=== PATIENT | male | born 1965 | race Caucasian/White ===

== ENCOUNTER 2020-12-07 21:16 | Inpatient (IN) | payer OTHER ==
[2020-12-07 21:55] LABS: #Basophils 0.1 thou/uL (0.0-0.2); #Eosinphils 0.3 thou/uL (0.0-0.7); #Lymphocytes 2.9 thou/uL (1.20-3.40); #Monocytes 1.3 thou/uL (0.11-0.59); #Neutrophils 6.3 thou/uL (1.40-6.50); %Basophils 0.7 % (0.0-1.0); %Eosinophils 2.9 % (0.0-10.0); %Lymphocytes 26.7 % (21.0-51.0); %Monocytes 12.3 % (0.0-10.0); %Neutrophils 57.4 % (42.0-75.0); Hemoglobin 11.2 g/dL (14.0-18.0); Mean Corpuscular Hemoglobin 31.7 pg (27.0-31.0); Platelet Count 541 thou/uL (130-400); RBC Distribution Width 15.3 % (11.5-14.5); Red Blood Cell (RBC) Count 3.52 mill/uL (4.70-6.10); White Blood Cell (WBC) Count 10.9 thou/uL (4.8-10.8)
[2020-12-07 22:30] LABS: ALT (SGPT) 29 U/L (8-55); AST (SGOT) 30 U/L (5-34); Albumin 3.3 g/dL (3.5-5.0); Alkaline Phosphatase 76 U/L (40-110); Anion Gap 14 mmol/L (10-20); BUN (Urea Nitrogen) 12 mg/dL (8.4-25.7); Bilirubin, Total 0.3 mg/dL (0.2-1.2); CK (CPK) 204 U/L (30-200); Calc. Creatinine Clearance 0 mL/min (70-130); Calcium 8.9 mg/dL (7.8-10.44); Carbon Dioxide 22 mmol/L (22-29); Chloride 105 mmol/L (98-107); Globulin 3.3 g/dL (2.4-3.5); Glucose 83 mg/dL (70-105); Potassium 4.3 mmol/L (3.5-5.1); Protein, Total 6.6 g/dL (6.0-8.3); Sodium 137 mmol/L (136-145)
[2020-12-07 23:47] LABS: SARS-CoV-2 NAA Rapid Test Not Detected (NotDetected)
[2020-12-08 01:20] VITALS: BMI 24.7
[2020-12-08] MEDS ORDERED: Ondansetron ODT 4 MG TAB SL PRN (01:45)
[2020-12-08] MEDS ORDERED: Acetaminophen 325 MG TAB PO PRN (01:45)
[2020-12-08] MEDS ORDERED: Ondansetron PF 4 MG/2 ML Vial IVP PRN (01:45)
[2020-12-08 02:23] LABS: Troponin I 0.017 ng/mL (< 0.028)
[2020-12-08] MEDS ORDERED: Sodium Chloride 0.9% 500 ML IV SCH (04:00)
[2020-12-08] MEDS ORDERED: Nitroglycerin 0.4 MG TAB (25 Tab Bottle) SL PRN (04:19)
[2020-12-08 06:52] LABS: Amphetamine Detected (NotDetected); Barbiturates Screen Not Detected (NotDetected); Benzodiazepine Screen Not Detected (NotDetected); Cocaine Metabolite Screen Not Detected (NotDetected); Methadone Not Detected (NotDetected); Methamphetamine Detected (NotDetected); Opiate Screen Not Detected (NotDetected); Oxycodone Screen Not Detected (NotDetected); Phencyclidine (PCP) Not Detected (NotDetected); THC/Cannabinoid Screen Detected (NotDetected); Tricyclic Screen Not Detected (NotDetected)
[2020-12-08] MEDS ORDERED: Aspirin Chewable 81 MG TAB PO SCH (09:00)
[2020-12-08] MEDS ORDERED: Carvedilol 3.125 MG TAB PO SCH (12:15)
[2020-12-08] MEDS ORDERED: Clopidogrel Bisulfate 75 MG TAB PO SCH (12:15)
[2020-12-08] MEDS: Atorvastatin Calcium 40 MG TAB PO SCH (20:19)
[2020-12-08] MEDS: Carvedilol 3.125 MG TAB PO SCH (21:31)
[2020-12-09] MEDS: Clopidogrel Bisulfate 75 MG TAB PO SCH (09:35)
[2020-12-09] MEDS: Carvedilol 3.125 MG TAB PO SCH ×2 (09:35→21:09)
[2020-12-09] MEDS: Atorvastatin Calcium 40 MG TAB PO SCH (21:09)
[2020-12-09] MEDS: Famotidine 20 MG TAB PO SCH (22:42)
[2020-12-10] MEDS: Famotidine 20 MG TAB PO SCH ×2 (09:05→19:53)
[2020-12-10] MEDS: Carvedilol 3.125 MG TAB PO SCH ×2 (09:06→19:53)
[2020-12-10] MEDS: Clopidogrel Bisulfate 75 MG TAB PO SCH (09:06)
[2020-12-10] MEDS: Atorvastatin Calcium 40 MG TAB PO SCH (19:53)
[2020-12-11 07:57] VITALS: BP 102/68; TEMP 98.7
[2020-12-11] MEDS: Clopidogrel Bisulfate 75 MG TAB PO SCH (08:17)
[2020-12-11] MEDS: Carvedilol 3.125 MG TAB PO SCH (08:17)
[2020-12-11] MEDS: Famotidine 20 MG TAB PO SCH (08:17)
[2020-12-11] MEDS ORDERED: FLU VACC QS2021-22(6MOS UP)/PF 60 MCG/0.5 ML SYRINGE IM ONE (21:00)
== END 2020-12-11 11:55 | DRG 303 ==
LOC: ERS 21:16 → EEVIPCON 22:49 → 3SE 22:49 → OBSVTOIN 12-09 14:09
PROVIDERS: ADMIT Internal Medicine; ATTEND Internal Medicine
DX: I25.119 Atherosclerotic heart disease of native coronary artery with unspecified angina pectoris (principal); I10 Essential (primary) hypertension; F15.90 Other stimulant use, unspecified, uncomplicated; F12.90 Cannabis use, unspecified, uncomplicated; E88.09 Other disorders of plasma-protein metabolism, not elsewhere classified; Z20.822 Contact with and (suspected) exposure to COVID-19; I25.2 Old myocardial infarction; Z88.8 Allergy status to other drugs, medicaments and biological substances; Z95.5 Presence of coronary angioplasty implant and graft; Z98.890 Other specified postprocedural states; Z87.891 Personal history of nicotine dependence
CPT/HCPCS: 36415; 71045; 80053; 80306; 82550; 84484; 85025; 90471; 90686; 90732; 93005; G0008; G0009; G0378; J7030; U0002